=== PATIENT | female | born 1985 | race African-American/Black ===

== ENCOUNTER 2016-11-11 04:04 | Emergency (ER) | payer OTHER ==
[~2016-11-11] VITALS: Ht 172.7 cm; Wt 89.4 kg
[~2016-11-11 04:04] MED LIST: ADVAIR 100-501 EACH INH; ADVAIR 100/501 PUFF1 INH; ADVAIR 250-501 EACH INH; ALBUTEROL SULF8.5 GM INH; ALBUTEROL2.5 MG/3 M HHN; ALBUTEROL2.5 MG/3 M INH; AMOXICILLIN500 MG ORAL; IBUPROFEN600 MG ORAL; IPRATROPIU0.2 MG/1 M HHN; METRONIDAZOLE500 MG ORAL; NKM; PREDNISONE20 MG ORAL; PREDNISONE50 MG ORAL; PROAIR HFA8.5 GM INH; QVAR7.3 GM INH; SYMBICORT 1601 PUFFS INH; SYMBICORT 16010.2 G1 IH; SYMBICORT 80-10.2 G1 IH; VENTOLIN HFA18 GM INH
[2016-11-11] MEDS ORDERED: PredniSONE 20mg tab ORAL ONE (04:30)
[2016-11-11] MEDS: Ipratropium 0.02% Inh Soln 2.5ml UD HHN SCH ×2 (04:47→05:00)
[2016-11-11] MEDS: Albuterol ud Inhalation HHN SCH ×2 (04:47→05:00)
[2016-11-11] MEDS ORDERED: SYMBICORT 16010.2 G1 IH (05:29)
[2016-11-11] MEDS ORDERED: PREDNISONE20 MG ORAL (05:29)
[2016-11-11] MEDS ORDERED: ALBUTEROL SULF8.5 GM INH (05:29)
[2016-11-11 05:30] VITALS: BP 122/60
[2016-11-11 05:35] VITALS: BP 122/60
--- NOTE | 2016-11-11 05:51 | Emergency Room Report ---
History of Present Illness General Chief Complaint: Dyspnea/Respdistress Source: Patient Present Illness HPI 31-year-old female presents ED complaining of shortness of breath x2 days. States patient has history of asthma. Patient states she ran out of her inhaler and symbicort. Denies any fevers or chills. Denies cough. No other aggravating relieving factors. Denies any other associated symptoms Allergies: Coded Allergies: No Known Allergies (Unverified , 10/24/14) Patient History Past Medical History: asthma Past Surgical History: none Pertinent Family History: none Social History: Denies: alcohol use, drug use, smoking Last Menstrual Period: NOV 08 Now: No : 0 Para: 2 Immunizations: UTD Reviewed Nursing Documentation: PMH: Agreed, PSxH: Agreed Nursing Documentation-PMH Hx Cardiac Problems: No Hx Asthma: Yes Hx Cancer: No Hx Gastrointestinal Problems: No Hx Neurological Problems: No Review of Systems All Other Systems: negative except mentioned in HPI Physical Exam Vital Signs Date Time Temp Pulse Resp B/P Pulse Ox O2 Delivery O2 Flow Rate FiO2 11/11/16 04:05 97.5 71 18 125/56 98 Room Air 11/11/16 05:23 21 Sp02 EP Interpretation: reviewed, normal General Appearance: no apparent distress, alert, GCS 15, non-toxic Head: normocephalic Eyes: bilateral eye PERRL, bilateral eye normal inspection ENT: normal ENT inspection Neck: normal inspection Respiratory: wheezing Cardiovascular #1: regular rate, rhythm, no edema Gastrointestinal: normal bowel sounds, non tender, soft, non-distended, no guarding, no rebound Rectal: deferred Genitourinary: no CVA tenderness Musculoskeletal: normal inspection Neurologic: alert, oriented x3, responsive, motor strength/tone normal, sensory intact, speech normal Psychiatric: normal inspection Skin: normal inspection Lymphatic: normal inspection Medical Decision Making Diagnostic Impression: Primary Impression: Asthma exacerbation ER Course Hospital Course 31-year-old female presents to ED complaining of SOB, wheezing Differential diagnoses include: URI, bronchitis, asthma/COPD, pneumonia Clinical course Patient placed on stretcher. After initial history, physical exam reveals a female in no acute distress. Bilateral TM unremarkable. No pharyngeal erythema. No tonsillar exudates. No lymphadenopathy. Mild wheezing noted on exam, no signs of respiratory distress or retractions. Patient given Prednisone and albuterol/atrovent treatment in ED with symptoms improved. Reassurance given Diagnosis - asthma exacerbation Stable and discharged home with prescriptions for prednisone, albuterol inhaler , symbicort. Instructed to followup with PMD. Return to ED if symptoms recur or worsen Last Vital Signs Date Time Temp Pulse Resp B/P Pulse Ox O2 Delivery O2 Flow Rate FiO2 11/11/16 05:24 70 20 100 Room Air 21 11/11/16 04:05 97.5 125/56 Status: improved Disposition: HOME, SELF-CARE Condition: Stable Scripts Prednisone* (PREDNISONE*) 20 Mg Tablet 40 MG ORAL DAILY, #10 TAB Prov: JAGDISH MORALES M.D. 11/11/16 Budesonide/Formoterol Fumarate (SYMBICORT 160-4.5 MCG INHALER) 10.2 Gm Hfa.aer.ad 1 PUFF IH BID, #1 INH 0 Refills Prov: JAGDISH MORALES M.D. 11/11/16 Albuterol Sulfate* (ALBUTEROL SULFATE MDI*) 8.5 Gm Hfa.aer.ad 2 PUFF INH Q4H Y for cough/wheezing, #1 EA 0 Refills Prov: JAGDISH MORALES M.D. 11/11/16 Referrals: [facility]ERR[facility] (PCP) Patient Instructions: Asthma, Adult JAGDISH MORALES M.D. Nov 11, 2016 05:51
== END 2016-11-11 05:36 | disposition home or self-care (01) ==
LOC: EMR 04:20
DX: J45.901 Unspecified asthma with (acute) exacerbation (principal)
CPT/HCPCS: 94640; 99284

== ENCOUNTER 2017-01-02 01:52 | Emergency (ER) | payer OTHER ==
[~2017-01-02] VITALS: Ht 172.7 cm; Wt 81.6 kg
[2017-01-02 02:09] VITALS: BP 113/63
[2017-01-02] MEDS ORDERED: PredniSONE 20mg tab ONE (02:24)
[2017-01-02] MEDS ORDERED: PredniSONE 20mg tab ORAL ONE (02:30)
[2017-01-02] MEDS ORDERED: ADVAIR 100-501 EACH INH (02:40)
[2017-01-02] MEDS ORDERED: SYMBICORT 16010.2 G1 IH (02:40)
[2017-01-02] MEDS ORDERED: PREDNISONE20 MG ORAL (02:40)
[2017-01-02] MEDS ORDERED: ALBUTEROL SULF8.5 GM INH (02:40)
--- NOTE | 2017-01-02 02:40 | Emergency Room Report ---
History of Present Illness General Chief Complaint: Asthma Source: Patient Present Illness HPI Is a 31-year-old female with history of asthma. She has an exacerbation practically every day. She does not smoke but does repeat to do. She is out of her inhaler for last couple days. She been using her nebulizer machine all day. No fever or chills. No nausea no vomiting. Similar to previous exacerbation. Never been intubated before. Last steroid use was several months ago. Allergies: Coded Allergies: No Known Allergies (Unverified , 10/24/14) Patient History Past Medical History: see triage record, old chart reviewed, asthma Past Surgical History: none Pertinent Family History: none Social History: Denies: smoking Last Menstrual Period: 12/11/16 Now: No : 0 Para: 0 Immunizations: other Reviewed Nursing Documentation: PMH: Agreed, PSxH: Agreed Nursing Documentation-PMH Hx Cardiac Problems: No Hx Asthma: Yes Hx Cancer: No Hx Gastrointestinal Problems: No Hx Neurological Problems: No Review of Systems Eye: Denies: blurred vision, eye pain ENT: Denies: ear pain, nose congestion, throat swelling Respiratory: Reports: shortness of breath, wheezing, Denies: cough Cardiovascular: Denies: chest pain, palpitations Gastrointestinal: Denies: abdominal pain, diarrhea, nausea, vomiting Musculoskeletal: Denies: back pain, joint pain Skin: Denies: rash Neurological: Denies: headache, numbness Endocrine: Denies: increased thirst, increased urine Hematologic/Lymphatic: Denies: easy bruising All Other Systems: negative except mentioned in HPI Physical Exam Vital Signs Date Time Temp Pulse Resp B/P Pulse Ox O2 Delivery O2 Flow Rate FiO2 01/02/17 01:57 98.1 73 16 113/63 97 Room Air vitals normal Sp02 EP Interpretation: reviewed, normal General Appearance: well appearing, no apparent distress, alert Head: normocephalic, atraumatic Eyes: bilateral eye EOMI, bilateral eye PERRL ENT: hearing grossly normal, normal pharynx Neck: full range of motion, supple, no meningismus Respiratory: chest non-tender, lungs clear, normal breath sounds Cardiovascular #1: regular rate, rhythm, no murmur Gastrointestinal: normal bowel sounds, non tender, no mass, no organomegaly, no bruit, non-distended Musculoskeletal: back normal, gait/station normal, normal range of motion Psychiatric: mood/affect normal Skin: warm/dry Medical Decision Making Diagnostic Impression: Primary Impression: Asthma exacerbation ER Course Patient with asthma exacerbation. Lungs are clear here. Will put on steroid. She said Advair helped in the past. No evidence of respiratory distress or pneumonia. Last Vital Signs Date Time Temp Pulse Resp B/P Pulse Ox O2 Delivery O2 Flow Rate FiO2 01/02/17 02:10 73 16 Room Air 01/02/17 02:09 98.1 113/63 97 Status: improved Disposition: HOME, SELF-CARE Condition: Stable Scripts Fluticasone/Salmeterol (Advair 100-50 Diskus) 1 Each Blst.w.dev 1 PUFF INH TWICE A DAY, #1 EA Prov: NAMRATA EARLY M.D. 01/02/17 Budesonide/Formoterol Fumarate (SYMBICORT 160-4.5 MCG INHALER) 10.2 Gm Hfa.aer.ad 1 PUFF IH BID, #1 INH 0 Refills Prov: NAMRATA EARLY M.D. 01/02/17 Prednisone* (PREDNISONE*) 20 Mg Tablet 60 MG ORAL DAILY, #12 TAB Prov: NAMRATA EARLY M.D. 01/02/17 Albuterol Sulfate* (ALBUTEROL SULFATE MDI*) 8.5 Gm Hfa.aer.ad 2 PUFF INH Q4H Y for cough/wheezing, #1 EA 0 Refills Prov: NAMRATA EARLY M.D. 01/02/17 Patient Instructions: Asthma, Adult Additional Instructions: Followup with your DrNelida in 7 days. Return if symptom worsen. NAMRATA EARLY M.D. Jan 02, 2017 02:40
== END 2017-01-02 02:45 | disposition home or self-care (01) ==
LOC: EMR 02:12
DX: J45.901 Unspecified asthma with (acute) exacerbation (principal)
CPT/HCPCS: 99284

== ENCOUNTER 2017-02-16 05:53 | Emergency (ER) | payer OTHER ==
[~2017-02-16] VITALS: Ht 172.7 cm; Wt 83.9 kg
[2017-02-16 06:10] VITALS: BP 118/76
[2017-02-16] MEDS ORDERED: Albuterol ud Inhalation HHN ONE (06:15)
[2017-02-16] MEDS ORDERED: PredniSONE 20mg tab ORAL ONE (06:15)
[2017-02-16] MEDS ORDERED: Ipratropium 0.02% Inh Soln 2.5ml UD HHN ONE (06:15)
[2017-02-16] MEDS ORDERED: DULERA 200 MCG/13 GM IH (06:18)
[2017-02-16] MEDS ORDERED: VENTOLIN HFA18 GM INH (06:18)
[2017-02-16 06:20] VITALS: BP 118/76
--- NOTE | 2017-02-17 08:59 | Emergency Room Report ---
History of Present Illness General Chief Complaint: Asthma Source: Patient Present Illness HPI 32-year-old female presents ED for evaluation. Patient states she is here to get her refill of her asthma medications. Takes albuterol and Dulera. Patient states she's been using her inhaler this week because she has a runny nose and cough. Cough is mostly dry with some intermittent sputum. Denies any fevers or chills. Denies chest pain shortness of breath. Denies any wheezing at this time. No other aggravating relieving factors. Denies any other associated symptoms Allergies: Coded Allergies: No Known Allergies (Unverified , 10/24/14) Patient History Past Medical History: asthma Past Surgical History: none Pertinent Family History: none Social History: Denies: alcohol use, drug use, smoking Now: No Immunizations: UTD Reviewed Nursing Documentation: PMH: Agreed, PSxH: Agreed Nursing Documentation-PMH Hx Cardiac Problems: No Hx Asthma: Yes Hx Cancer: No Hx Gastrointestinal Problems: No Hx Neurological Problems: No Review of Systems All Other Systems: negative except mentioned in HPI Physical Exam Vital Signs Date Time Temp Pulse Resp B/P Pulse Ox O2 Delivery O2 Flow Rate FiO2 02/16/17 05:57 97.7 67 18 120/75 98 Room Air Sp02 EP Interpretation: reviewed, normal General Appearance: no apparent distress, alert, GCS 15, non-toxic Head: normocephalic, atraumatic Eyes: bilateral eye PERRL, bilateral eye normal inspection ENT: hearing grossly normal, normal pharynx, no angioedema, normal voice Neck: full range of motion, supple/symm/no masses Respiratory: chest non-tender, lungs clear, normal breath sounds, speaking full sentences Cardiovascular #1: regular rate, rhythm, no edema Cardiovascular #2: 2+ carotid (R), 2+ carotid (L), 2+ radial (R), 2+ radial (L) , 2+ dorsalis pedis (R), 2+ dorsalis pedis (L) Gastrointestinal: normal bowel sounds, non tender, soft, non-distended, no guarding, no rebound Rectal: deferred Genitourinary: normal inspection, no CVA tenderness Musculoskeletal: back normal, gait/station normal, normal range of motion, non- tender Neurologic: alert, oriented x3, responsive, motor strength/tone normal, sensory intact, speech normal Psychiatric: judgement/insight normal, memory normal, mood/affect normal, no suicidal/homicidal ideation Reflexes: 3+ bicep (R), 3+ bicep (L), 3+ tricep (R), 3+ tricep (L), 3+ knee (R) , 3+ knee (L) Skin: normal color, no rash, warm/dry, well hydrated Lymphatic: no adenopathy Medical Decision Making Diagnostic Impression: Primary Impression: Medication refill Additional Impression: Asthma Qualified Codes: J45.909 - Unspecified asthma, uncomplicated ER Course 32-year-old female presents to ED refill of her medication. History of asthma hospital course: After initial history is exam reveals a young female in no acute distress. Lungs clear. Vital stable. O2 saturations 100%. Patient appears comfortable. Patient is not want any breathing treatment at this time. Only wants refills of her medication Diagnosis-encounter for medication refill, asthma Stable and discharged to home with prescription for albuterol, dulera. Followup with PMD. Return to ED if symptoms recur or worsen Last Vital Signs Date Time Temp Pulse Resp B/P Pulse Ox O2 Delivery O2 Flow Rate FiO2 02/16/17 06:20 97.7 77 17 118/76 99 Room Air Status: improved Disposition: HOME, SELF-CARE Condition: Stable Scripts Mometasone/Formoterol (DULERA 200 MCG/5 MCG INHALER) 13 Gm Hfa.aer.ad 13 GM IH BID, #1 UNIT Prov: JAGDISH MORALES M.D. 02/16/17 Albuterol Sulfate (VENTOLIN HFA) 18 Gm Hfa.aer.ad 2 PUFFS INH EVERY 6 HOURS, #18 GM 0 Refills Prov: JAGDISH MORALES M.D. 02/16/17 Referrals: [facility]OS[facility]/,REFERRING Patient Instructions: Asthma, Adult JAGDISH MORALES M.D. February 17, 2017 08:59
== END 2017-02-16 06:20 | disposition home or self-care (01) ==
LOC: EMR 06:20
DX: Z76.0 Encounter for issue of repeat prescription (principal); J45.909 Unspecified asthma, uncomplicated
CPT/HCPCS: 99284

== ENCOUNTER 2017-08-31 05:20 | Emergency (ER) | payer SELFPAY ==
[~2017-08-31] VITALS: Ht 172.7 cm; Wt 81.6 kg
[~2017-08-31 05:20] MED LIST changes: +DULERA 200 MCG/13 GM IH
[2017-08-31 05:29] VITALS: BP 120/78
[2017-08-31] MEDS ORDERED: ALBUTEROL SULF8.5 GM INH (05:39)
[2017-08-31] MEDS ORDERED: PREDNISONE20 MG ORAL (05:39)
--- NOTE | 2017-08-31 05:44 | Emergency Room Report ---
History of Present Illness General Chief Complaint: Asthma Source: Patient Present Illness HPI Patient presents with complaints of flareup of her asthma She reports that she is running out of her albuterol inhaler Denies any fevers or chills She has a mild cough Denies any vomiting or diarrhea denies any recent travel Denies any rash Patient reports being on a steroid inhaler However is unsure this is helping Allergies: Coded Allergies: No Known Allergies (Unverified , 10/24/14) Patient History Past Medical History: see triage record Pertinent Family History: none Last Menstrual Period: Jul Reviewed Nursing Documentation: PMH: Agreed, PSxH: Agreed Nursing Documentation-PMH Hx Cardiac Problems: No Hx Asthma: Yes Hx Cancer: No Hx Gastrointestinal Problems: No Hx Neurological Problems: No Review of Systems All Other Systems: negative except mentioned in HPI Physical Exam Vital Signs Date Time Temp Pulse Resp B/P (MAP) Pulse Ox O2 Delivery O2 Flow Rate FiO2 08/31/17 05:23 97.7 58 18 120/78 97 Room Air Sp02 EP Interpretation: reviewed, normal General Appearance: well appearing, no apparent distress Head: normocephalic, atraumatic Eyes: bilateral eye PERRL, bilateral eye EOMI ENT: hearing grossly normal, normal pharynx, TMs + canals normal, uvula midline Neck: full range of motion, supple, no meningismus, no bony tend Respiratory: no rhonchi, no respiratory distress, no retraction, no accessory muscle use, wheezing - bilaterally Cardiovascular #1: normal peripheral pulses, regular rate, rhythm, no edema, no gallop, no JVD, no murmur Gastrointestinal: normal bowel sounds, non tender, soft, no mass, no organomegaly, non-distended, no guarding, no hernia, no pulsatile mass, no rebound Genitourinary: no CVA tenderness Musculoskeletal: normal inspection Neurologic: oriented x3, responsive, principal clerk typist III-XII nml as tested, motor strength/ tone normal, sensory intact Psychiatric: mood/affect normal Skin: normal color, no rash, warm/dry, palpation normal Lymphatic: normal inspection, no adenopathy Medical Decision Making Diagnostic Impression: Primary Impression: Asthma exacerbation ER Course Multiple differentials considered Patient does show evidence of wheezing bilaterally No signs of retraction saturating well patient has had several visits with similar complaints History imaging was not obtained Patient was given breathing treatment has done better And will be placed on oral steroids for a few days Last Vital Signs Date Time Temp Pulse Resp B/P (MAP) Pulse Ox O2 Delivery O2 Flow Rate FiO2 08/31/17 05:29 97.7 76 18 120/78 98 Room Air Status: improved Disposition: HOME, SELF-CARE Condition: Improved Scripts Prednisone* (PREDNISONE*) 20 Mg Tablet 20 MG ORAL BID, #10 TAB Prov: PARADISE CALL D.O. 08/31/17 Albuterol Sulfate* (ALBUTEROL SULFATE MDI*) 8.5 Gm Hfa.aer.ad 2 PUFF INH Q6H, #1 EA 0 Refills Prov: PARADISE CALL D.O. 08/31/17 Referrals: NOT [facility]OSEN [facility],REFERRING (PCP) Patient Instructions: Asthma, Adult Additional Instructions: Patient is provided with the discharge instructions notified to follow up with primary doctor in the next 2-3 days otherwise return to the er with any worsening symptoms. Please note that this report is being documented using [employer] technology. This can lead to erroneous entry secondary to incorrect interpretation by the dictating instrument. PARADISE CALL D.O. Aug 31, 2017 05:44
[2017-08-31] MEDS ORDERED: Albuterol ud Inhalation HHN ONE (05:45)
[2017-08-31] MEDS ORDERED: Ipratropium 0.02% Inh Soln 2.5ml UD HHN ONE (05:45)
[2017-08-31 06:07] VITALS: BP 118/70
== END 2017-08-31 06:07 | disposition home or self-care (01) ==
LOC: EMR 05:41
DX: J45.901 Unspecified asthma with (acute) exacerbation (principal)
CPT/HCPCS: 94640; 94664; 99284

== ENCOUNTER 2017-09-21 04:00 | Emergency (ER) | payer MEDICAID ==
[~2017-09-21] VITALS: Ht 172.7 cm; Wt 81.6 kg
[2017-09-21] MEDS ORDERED: Solu-MEDROL 125mg Inj IVP ONE (04:15)
[2017-09-21] MEDS ORDERED: EPINEPHrine 1mg/1ml Amp IM ONE (04:15)
[2017-09-21] MEDS ORDERED: Ipratropium 0.02% Inh Soln 2.5ml UD HHN ONE (04:15)
--- NOTE | 2017-09-21 04:20 | Emergency Room Report ---
History of Present Illness General Chief Complaint: Asthma Source: Patient Present Illness HPI The patient presents with dyspnea. She's been ill for at least 2 days. She's been using her inhalers and a nebulizer at least every couple of hours. They' re not helping at this time. She's been intubated in the past and had a chest tube in the past also. Is not her worse attack. It is severe. She's not taking prednisone at this time and was last on it 3 weeks ago. She denies any hemoptysis or productive cough. She says is very difficult to cough because she can't get enough air the before stop. Denies nausea vomiting or diarrhea. Her last period was tenth. Last admitted . No rashes, headache, vomiting, dysuria. She doesn't believe she is . 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 Allergies: Coded Allergies: No Known Allergies (Unverified , 10/24/14) Patient History Past Medical History: see triage record Social History: Denies: smoking Social History Narrative Last Menstrual Period: 09/05/17 Now: No : 1 Para: 0 Reviewed Nursing Documentation: PMH: Agreed, PSxH: Agreed Nursing Documentation-PMH Hx Cardiac Problems: No Hx Asthma: Yes Hx Cancer: No Hx Gastrointestinal Problems: No Hx Neurological Problems: No Review of Systems All Other Systems: negative except mentioned in HPI Physical Exam Vital Signs Date Time Temp Pulse Resp B/P (MAP) Pulse Ox O2 Delivery O2 Flow Rate FiO2 09/21/17 04:04 98.1 68 14 136/87 99 Room Air Sp02 EP Interpretation: reviewed, normal General Appearance: well appearing, GCS 15, mild distress Head: normocephalic Eyes: bilateral eye normal inspection, bilateral eye PERRL ENT: moist mucus membranes Neck: supple Respiratory: accessory muscle use, wheezing - heard from bedside, expiration, inspiration - tight Cardiovascular #1: regular rate, rhythm Cardiovascular #2: 2+ radial (R) Gastrointestinal: normal inspection, normal bowel sounds, non tender, no mass, non-distended Musculoskeletal: back normal, gait/station normal, normal range of motion, no calf tenderness Neurologic: alert, oriented x3, grossly normal Psychiatric: mood/affect normal Skin: normal inspection, warm/dry Medical Decision Making Diagnostic Impression: Primary Impression: Status asthmaticus Qualified Codes: J45.52 - Severe persistent asthma with status asthmaticus ER Course Patient with bronchospasm, h/o ashma stating inhalers and nebulizer not working. Ddx: pneumonia, status asthmaticus, asthma exacerbation, bronchitis amongst others. Doubt PE. Sounds infectious. Patient with severe bronchospasm. Needs evaluation with labs, cxr and ekg. Aggressive treatment with breathing treatments, IM epi, steroids, magnesium. Consideration for hospitalization if not dramatically improved. CXR no infiltrates. EKG no injury. Labs with low mag. Normal WBC. No eosinophils. Patient improved but still with insp and exp wheezes. Continued breathing treatments. Hospital bed requested. Patient better. Insists on leaving. Long discussion regarding severity of asthma. She states she "feels great". Clear at start of exercise - then at end = exp wheezing. Discharged patient with reluctance. Laboratory Tests Test 09/21/17 04:30 White Blood Count 3.4 K/UL (4.8-10.8) L Red Blood Count 4.85 M/UL (4.20-5.40) Hemoglobin 12.6 G/DL (12.0-16.0) Hematocrit 41.0 % (37.0-47.0) Mean Corpuscular Volume 84 FL (80-99) Mean Corpuscular Hemoglobin 26.0 PG (27.0-31.0) L Mean Corpuscular Hemoglobin Concent 30.8 G/DL (32.0-36.0) L Red Cell Distribution Width 12.4 % (11.6-14.8) Platelet Count 225 K/UL (150-450) Mean Platelet Volume 6.9 FL (6.5-10.1) Neutrophils (%) (Auto) % (45.0-75.0) Lymphocytes (%) (Auto) % (20.0-45.0) Monocytes (%) (Auto) % (1.0-10.0) Eosinophils (%) (Auto) % (0.0-3.0) Basophils (%) (Auto) % (0.0-2.0) Neutrophils % (Manual) Pending Lymphocytes % (Manual) Pending Platelet Estimate Pending Platelet Morphology Pending Prothrombin Time 10.7 SEC (9.30-11.50) Prothrombin Time INR 1.0 (0.9-1.1) PTT 28 SEC (23-33) Sodium Level 139 MMOL/L (136-145) Potassium Level 4.1 MMOL/L (3.5-5.1) Chloride Level 104 MMOL/L (98-107) Carbon Dioxide Level 26 MMOL/L (21-32) Anion Gap 9 mmol/L (5-15) Blood Urea Nitrogen 19 mg/dL (7-18) H Creatinine 1.1 MG/DL (0.55-1.30) Estimate Glomerular Filtration Rate > 60 mL/min (>60) Glucose Level 95 MG/DL (74-106) Calcium Level 7.6 MG/DL (8.5-10.1) L Magnesium Level 1.7 MG/DL (1.8-2.4) L Total Bilirubin 0.9 MG/DL (0.2-1.0) Aspartate Amino Transferase (AST) 17 U/L (15-37) Alanine Aminotransferase (ALT) 27 U/L (12-78) Alkaline Phosphatase 51 U/L (46-116) Total Creatine Kinase 116 U/L (26-308) Troponin I 0.000 ng/mL (0.000-0.056) Pro-B-Type Natriuretic Peptide 7 pg/mL (0-125) Total Protein 6.8 G/DL (6.4-8.2) Albumin 3.7 G/DL (3.4-5.0) Globulin 3.1 g/dL Albumin/Globulin Ratio 1.2 (1.0-2.7) EKG Diagnostic Results Rate: normal Rhythm: NSR ST Segments: no acute changes Rhythm Strip Diag. Results Rhythm: NSR, no PVC's, no ectopy Last Vital Signs Date Time Temp Pulse Resp B/P (MAP) Pulse Ox O2 Delivery O2 Flow Rate FiO2 09/21/17 06:44 98.2 80 16 125/95 97 Room Air 21 Status: improved Disposition: HOME, SELF-CARE Condition: Improved Scripts Multivitamin With Minerals (MULTIVITAMINS WITH MINERALS*) 1 Each Tablet 1 TAB ORAL DAILY, #30 TAB Prov: Juwan Nathan M.D. 09/21/17 Albuterol Sulfate* (ALBUTEROL SULFATE MDI*) 8.5 Gm Hfa.aer.ad 2 PUFF INH Q4H Y for cough/wheezing, #1 EA 1 Refill Prov: Juwan Nathan M.D. 09/21/17 Albuterol Sulfate* (ALBUTEROL SULFATE HHN*) 2.5 Mg/3 Ml Vial.neb 3 ML INH Q6H Y for Shortness of Breath, #30 EA 1 Refill Prov: Juwan Nathan M.D. 09/21/17 Beclomethasone Dipropionate 40MCG Oral Inh (QVAR 40*) 7.3 Gm Aer.w.adap 2 PUFFS INH TWICE A DAY, #1 GM 1 Refill Prov: Juwan Nathan M.D. 09/21/17 Prednisone* (PREDNISONE*) 20 Mg Tablet 40 MG ORAL DAILY, #10 TAB Prov: Juwan Nathan M.D. 09/21/17 Juwan Nathan M.D. Sep 21, 2017 04:20
[2017-09-21 04:22] VITALS: BP 125/95
[2017-09-21] MEDS: Albuterol ud Inhalation HHN SCH ×3 (04:31→04:50)
[2017-09-21 05:03] LABS: MEAN CORPUSCULAR HGB CONC 30.8 G/DL (32.0-36.0); MEAN CORPUSCULAR VOLUME 84 FL (80-99); MEAN PLATELET VOLUME 6.9 FL (6.5-10.1); PLATELET COUNT 225 K/UL (150-450); RED BLOOD COUNT 4.85 M/UL (4.20-5.40); RED CELL DISTRIBUTION WIDTH 12.4 % (11.6-14.8); WHITE BLOOD COUNT 3.4 K/UL (4.8-10.8)
[2017-09-21 05:04] LABS: PROTHROMBIN TIME 10.7 SEC (9.30-11.50)
[2017-09-21 05:05] LABS: ANION GAP 9 mmol/L (5-15); CALCIUM 7.6 MG/DL (8.5-10.1); CARBON DIOXIDE 26 MMOL/L (21-32); CHLORIDE 104 MMOL/L (98-107); CREATININE 1.1 MG/DL (0.55-1.30); GLOMERULAR FILTRATION RATE > 60 mL/min (>60); POTASSIUM 4.1 MMOL/L (3.5-5.1); SODIUM 139 MMOL/L (136-145)
[2017-09-21 05:16] LABS: ALANINE AMINOTRANSFERASE 27 U/L (12-78); ALBUMIN/GLOBULIN RATIO 1.2 (1.0-2.7); ASPARTATE AMINO TRANSFERASE 17 U/L (15-37); MAGNESIUM 1.7 MG/DL (1.8-2.4); TOTAL PROTEIN 6.8 G/DL (6.4-8.2)
[2017-09-21] MEDS ORDERED: Albuterol ud Inhalation HHN ONE (06:15)
[2017-09-21] MEDS ORDERED: ALBUTEROL2.5 MG/3 M INH (06:39)
[2017-09-21] MEDS ORDERED: PREDNISONE20 MG ORAL (06:39)
[2017-09-21] MEDS ORDERED: ALBUTEROL SULF8.5 GM INH (06:39)
[2017-09-21] MEDS ORDERED: QVAR7.3 GM INH (06:39)
[2017-09-21] MEDS ORDERED: MULTIVITAMINS1 EAC8 ORAL (06:40)
[2017-09-21 06:44] VITALS: BP 125/95
[2017-09-21 07:53] LABS: BAND NEUTROPHILS % (MANUAL) 0 % (0-8); BASOPHILS % (MANUAL) 0 % (0-2); EOSINOPHILS % (MANUAL) 9 % (0-3); LYMPHOCYTES % (MANUAL) 44 % (20-45); NEUTROPHILS % (MANUAL) 37 % (45-75); PLATELET ESTIMATE ADEQUATE; PLATELET MORPHOLOGY NORMAL; TOTAL CELLS COUNTED 100
--- NOTE | 2017-09-21 12:12 | Diagnostic Imaging Report ---
Indication: Dyspnea Comparison: 10/24/2014 A single view chest radiograph was obtained. Findings: Cardiomediastinal appearance is within normal limits for age. Pulmonary vascularity is appropriate. The diaphragmatic contour is smooth and costophrenic angles are sharp. No pleural effusions are identified. The bones are unremarkable. Impression: No acute findings
--- NOTE | 2017-10-05 00:22 | Cardiology Report ---
APPROVED REPORT EKG Measurement Heart [id number] Normal sinus rhythm Normal ECG
== END 2017-09-21 06:48 | disposition home or self-care (01) ==
LOC: EMR 04:10 → CANBEDREQ 06:36 → EMR 06:48
DX: J45.902 Unspecified asthma with status asthmaticus (principal)
CPT/HCPCS: 36415; 71010; 80053; 82550; 83735; 83880; 84484; 85007; 85025; 85610; 85730; 93005; 94640; 94664; 96361; 96372; 96374; 96375; 99284; J0171; J2930

== ENCOUNTER 2017-11-08 02:47 | Emergency (ER) | payer SELFPAY ==
[~2017-11-08] VITALS: Ht 172.7 cm; Wt 79.8 kg
[~2017-11-08 02:47] MED LIST changes: +MULTIVITAMINS1 EAC8 ORAL
[2017-11-08 03:03] VITALS: BP 114/53
[2017-11-08] MEDS ORDERED: cefTRIAXone 1 GM in NS 55 ML IV STA (03:11)
[2017-11-08] MEDS ORDERED: Ipratropium 0.02% Inh Soln 2.5ml UD HHN ONE (03:15)
[2017-11-08] MEDS ORDERED: Solu-MEDROL 125mg Inj IVP ONE (03:15)
--- NOTE | 2017-11-08 03:22 | Emergency Room Report ---
History of Present Illness General Chief Complaint: Asthma Source: Patient Present Illness HPI Patient has had worsened asthma for several weeks. She's had cough and wheezing. She's been using her nebulizer. She ran out of her steroid inhalers several weeks ago. Today coughing up yellow phlegm. She feels feverish. She denies any vomiting or diarrhea. There's no dysuria. Last period was normal for her recently. There is no rash. She's also had some pressure and discomfort in her R ear. Does not rate pain (0/10). The patient was seen here in August and had status asthmaticus. She got better but signed out AGAINST MEDICAL ADVICE to travel to [place] her niece and nephew. No NVD, rashes, headache, anxiety, dysuria, vag d/c, joint pain, chest pain, palpitations. Allergies: Coded Allergies: No Known Allergies (Unverified , 10/24/14) Patient History Past Medical History: see triage record Social History: Denies: smoking Social History Narrative Last Menstrual Period: 10/15/17 Now: No : 1 Para: 0 Reviewed Nursing Documentation: PMH: Agreed, PSxH: Agreed Nursing Documentation-PMH Past Medical History: No History, Except For Hx Cardiac Problems: No Hx Asthma: Yes Hx Cancer: No Hx Gastrointestinal Problems: No Hx Neurological Problems: No Review of Systems All Other Systems: negative except mentioned in HPI Physical Exam Vital Signs Date Time Temp Pulse Resp B/P (MAP) Pulse Ox O2 Delivery O2 Flow Rate FiO2 11/08/17 02:50 98.1 75 15 121/83 95 Room Air 11/08/17 03:03 100 Sp02 EP Interpretation: reviewed, normal General Appearance: well appearing, no apparent distress, GCS 15 Head: normocephalic Eyes: bilateral eye normal inspection, bilateral eye PERRL ENT: moist mucus membranes, other - R TM with some erythema Neck: supple Respiratory: wheezing, expiration, inspiration Cardiovascular #1: regular rate, rhythm, no edema Cardiovascular #2: 2+ radial (R) Gastrointestinal: normal inspection, normal bowel sounds, non tender, no mass, non-distended Musculoskeletal: back normal, gait/station normal, normal range of motion, no calf tenderness Neurologic: alert, oriented x3, grossly normal Psychiatric: mood/affect normal Skin: normal inspection, warm/dry Medical Decision Making Diagnostic Impression: Primary Impression: Asthma exacerbation Qualified Codes: J45.51 - Severe persistent asthma with (acute) exacerbation Additional Impression: Otitis media Qualified Codes: H66.004 - Acute suppurative otitis media without spontaneous rupture of ear drum, recurrent, right ear ER Course Patient presents with asthma and a productive cough. She also complains about pain in her right ear. Differential includes asthma exacerbation, otitis media , pneumonia or bronchospasm amongst others. The patient be treated with Solu- Medrol and breathing treatments. Evaluation be with EKG, cardiac monitoring, chest x-ray and labs. EKG no injury. CXR no infiltrates. Labs with low WBC, rest unremarkable. In the past she has had eosinophilia. Still with wheezing but ambulatory without dyspnea. Repeat breathing treatment. Antibiotics for OM. Patient still with some wheezing, states wheezes all the time. Feels well enough to be home. Patient stable for outpatient observation and treatment. Laboratory Tests Test 11/08/17 03:25 11/08/17 05:20 White Blood Count 3.3 K/UL (4.8-10.8) L Red Blood Count 5.16 M/UL (4.20-5.40) Hemoglobin 13.6 G/DL (12.0-16.0) Hematocrit 42.5 % (37.0-47.0) Mean Corpuscular Volume 82 FL (80-99) Mean Corpuscular Hemoglobin 26.4 PG (27.0-31.0) L Mean Corpuscular Hemoglobin Concent 32.0 G/DL (32.0-36.0) Red Cell Distribution Width 11.6 % (11.6-14.8) Platelet Count 232 K/UL (150-450) Mean Platelet Volume 6.7 FL (6.5-10.1) Neutrophils (%) (Auto) % (45.0-75.0) Lymphocytes (%) (Auto) % (20.0-45.0) Monocytes (%) (Auto) % (1.0-10.0) Eosinophils (%) (Auto) % (0.0-3.0) Basophils (%) (Auto) % (0.0-2.0) Prothrombin Time 10.7 SEC (9.30-11.50) Prothrombin Time INR 1.0 (0.9-1.1) PTT 31 SEC (23-33) Sodium Level 138 MMOL/L (136-145) Potassium Level 4.0 MMOL/L (3.5-5.1) Chloride Level 102 MMOL/L (98-107) Carbon Dioxide Level 29 MMOL/L (21-32) Anion Gap 7 mmol/L (5-15) Blood Urea Nitrogen 21 mg/dL (7-18) H Creatinine 1.3 MG/DL (0.55-1.30) Estimate Glomerular Filtration Rate 56.8 mL/min (>60) Glucose Level 77 MG/DL (74-106) Lactic Acid Level 1.30 mmol/L (0.66-2.22) Calcium Level 9.0 MG/DL (8.5-10.1) Magnesium Level 1.9 MG/DL (1.8-2.4) Total Bilirubin 0.6 MG/DL (0.2-1.0) Aspartate Amino Transferase (AST) 17 U/L (15-37) Alanine Aminotransferase (ALT) 22 U/L (12-78) Alkaline Phosphatase 61 U/L (46-116) Total Creatine Kinase 166 U/L (26-308) Pro-B-Type Natriuretic Peptide 12 pg/mL (0-125) Total Protein 7.1 G/DL (6.4-8.2) Albumin 4.1 G/DL (3.4-5.0) Globulin 3.0 g/dL Albumin/Globulin Ratio 1.4 (1.0-2.7) Urine Color Pale yellow Urine Appearance Clear Urine pH 7 (4.5-8.0) Urine Specific [place] 1.010 (1.005-1.035) Urine Protein Negative (NEGATIVE) Urine Glucose (UA) Negative (NEGATIVE) Urine Ketones Negative (NEGATIVE) Urine Occult Blood Negative (NEGATIVE) Urine Nitrite Negative (NEGATIVE) Urine Bilirubin Negative (NEGATIVE) Urine Urobilinogen Normal MG/DL (0.0-1.0) Urine Leukocyte Esterase Negative (NEGATIVE) Microbiology Date/Time Source Procedure Growth Status 11/08/17 05:20 Nasal Nares Influenza Types A,B Antigen (LOS) - Final Complete EKG Diagnostic Results Rate: normal Rhythm: NSR ST Segments: no acute changes Rhythm Strip Diag. Results EP Interpretation: yes Rhythm: NSR, no PVC's, no ectopy Chest X-Ray Diagnostic Results Chest X-Ray Diagnostic Results : Chest X-Ray Ordered: Yes # of Views/Limited/Complete: 1 View Indication: Shortness of Breath EP Interpretation: Yes Interpretation: no consolidation, no effusion, no pneumothorax Impression: Other Electronically Signed by: Juwan Nathan MD Last Vital Signs Date Time Temp Pulse Resp B/P (MAP) Pulse Ox O2 Delivery O2 Flow Rate FiO2 11/08/17 06:25 98.2 94 24 139/78 99 Room Air 21 Status: improved Disposition: HOME, SELF-CARE Condition: Improved Scripts Levofloxacin* (LEVAQUIN*) 500 Mg Tablet 500 MG ORAL DAILY, #7 TAB Prov: Juwan Nathan M.D. 11/08/17 Beclomethasone Dipropionate 40MCG Oral Inh (QVAR 40*) 7.3 Gm Aer.w.adap 2 PUFFS INH TWICE A DAY, #1 GM 0 Refills Prov: Juwan Nathan M.D. 11/08/17 Albuterol Sulfate* (ALBUTEROL SULFATE MDI*) 8.5 Gm Hfa.aer.ad 2 PUFF INH Q6H, #1 EA 1 Refill Prov: Juwan Nathan M.D. 11/08/17 Prednisone* (PREDNISONE*) 20 Mg Tablet 40 MG ORAL DAILY, #10 TAB Prov: Juwan Nathan M.D. 11/08/17 Juwan Nathan M.D. Nov 08, 2017 03:22
[2017-11-08 03:30] LABS: HEMATOCRIT 42.5 % (37.0-47.0); HEMOGLOBIN 13.6 G/DL (12.0-16.0); MEAN CORPUSCULAR VOLUME 82 FL (80-99); PLATELET COUNT 232 K/UL (150-450); RED BLOOD COUNT 5.16 M/UL (4.20-5.40); RED CELL DISTRIBUTION WIDTH 11.6 % (11.6-14.8); WHITE BLOOD COUNT 3.3 K/UL (4.8-10.8)
[2017-11-08] MEDS: Albuterol ud Inhalation HHN SCH ×2 (03:33→03:34)
[2017-11-08 03:50] LABS: ANION GAP 7 mmol/L (5-15); BLOOD UREA NITROGEN 21 mg/dL (7-18); CARBON DIOXIDE 29 MMOL/L (21-32); CHLORIDE 102 MMOL/L (98-107); CREATININE 1.3 MG/DL (0.55-1.30); SODIUM 138 MMOL/L (136-145)
[2017-11-08 04:01] LABS: ALANINE AMINOTRANSFERASE 22 U/L (12-78); ALBUMIN 4.1 G/DL (3.4-5.0); ALBUMIN/GLOBULIN RATIO 1.4 (1.0-2.7); ALKALINE PHOSPHATASE 61 U/L (46-116); ASPARTATE AMINO TRANSFERASE 17 U/L (15-37); BILIRUBIN,TOTAL 0.6 MG/DL (0.2-1.0); CREATINE KINASE 166 U/L (26-308)
[2017-11-08] MEDS ORDERED: Albuterol ud Inhalation HHN ONE (05:15)
[2017-11-08 05:20] LABS: APPEARANCE,URINE CLEAR; BILIRUBIN, URINE NEGATIVE (NEGATIVE); COLOR,URINE PALE YELLOW; GLUCOSE, URINE (UA) NEGATIVE (NEGATIVE); KETONES,URINE NEGATIVE (NEGATIVE); LEUKOCYTE ESTERASE ,URINE NEGATIVE (NEGATIVE); NITRITE,URINE NEGATIVE (NEGATIVE); PH,URINE 7 (4.5-8.0); PROTEIN,URINE NEGATIVE (NEGATIVE); UROBILINOGEN,URINE NORMAL MG/DL (0.0-1.0)
[2017-11-08] MEDS ORDERED: LEVAQUIN500 MG ORAL (06:05)
[2017-11-08] MEDS ORDERED: QVAR7.3 GM INH (06:05)
[2017-11-08] MEDS ORDERED: ALBUTEROL SULF8.5 GM INH (06:05)
[2017-11-08] MEDS ORDERED: PREDNISONE20 MG ORAL (06:05)
[2017-11-08 06:09] VITALS: BP 139/78
[2017-11-08 06:25] VITALS: BP 139/78
--- NOTE | 2017-11-08 10:22 | Diagnostic Imaging Report ---
Indication: Cough Comparison: 09/21/2017 A single view chest radiograph was obtained. Findings: Cardiomediastinal appearance is within normal limits for age. Pulmonary vascularity is appropriate. The diaphragmatic contour is smooth and costophrenic angles are sharp. No pleural effusions are identified. The bones are unremarkable. Impression: No acute findings
--- NOTE | 2017-11-08 19:30 | Cardiology Report ---
APPROVED REPORT EKG Measurement Heart [id number] Normal sinus rhythm with sinus arrhythmia Normal ECG
== END 2017-11-08 06:25 | disposition home or self-care (01) ==
LOC: EMR 03:30
DX: J45.901 Unspecified asthma with (acute) exacerbation (principal); H66.91 Otitis media, unspecified, right ear
CPT/HCPCS: 36415; 71045; 80053; 81003; 82550; 83605; 83735; 83880; 85025; 85610; 85730; 86710; 93005; 94640; 94664; 96361; 96365; 96366; 96375; 99284; J0696; J1956; J2930

== ENCOUNTER 2018-01-02 22:57 | Emergency (ER) | payer SELFPAY ==
[~2018-01-02] VITALS: Ht 172.7 cm; Wt 77.1 kg
[~2018-01-02 22:57] MED LIST changes: +LEVAQUIN500 MG ORAL
[2018-01-02 23:15] VITALS: BP 132/65
[2018-01-02] MEDS ORDERED: Ipratropium 0.02% Inh Soln 2.5ml UD HHN ONE (23:15)
[2018-01-02] MEDS ORDERED: Albuterol ud Inhalation HHN ONE (23:15)
[2018-01-02] MEDS ORDERED: ALBUTEROL SULF8.5 GM INH (23:48)
[2018-01-02] MEDS ORDERED: PREDNISONE20 MG ORAL (23:48)
[2018-01-02] MEDS ORDERED: QVAR7.3 G2 IH (23:48)
[2018-01-02] MEDS ORDERED: ALBUTEROL2.5 MG/3 M HHN (23:48)
--- NOTE | 2018-01-02 23:48 | Emergency Room Report ---
History of Present Illness General Chief Complaint: Upper Respiratory Illness Source: Patient Present Illness [facility] This is a 32-year-old female with history of asthma. She presents with chief point of wheezing and short of breath. Onset for last 2 days. She ran out of her medication. No nausea no vomiting. No fever or chills. Worse with exertion. Better with rest and her medication. She just ran out today. Allergies: Coded Allergies: No Known Allergies (Unverified , 10/24/14) Patient History Past Medical History: see triage record, old chart reviewed, asthma Past Surgical History: none Pertinent Family History: none Social History: Denies: smoking Last Menstrual Period: 12/07/17 Now: No Immunizations: other Reviewed Nursing Documentation: PMH: Agreed; PSxH: Agreed Nursing Documentation-PMH Past Medical History: No History, Except For Hx Cardiac Problems: No Hx Asthma: Yes Hx Cancer: No Hx Gastrointestinal Problems: No Hx Neurological Problems: No Review of Systems Eye: Denies: eye pain, blurred vision ENT: Denies: ear pain, nose congestion, throat swelling Respiratory: Reports: cough, shortness of breath, wheezing Cardiovascular: Denies: chest pain, palpitations Gastrointestinal: Denies: abdominal pain, diarrhea, nausea, vomiting Musculoskeletal: Denies: back pain, joint pain Skin: Denies: rash Neurological: Denies: headache, numbness Endocrine: Denies: increased thirst, increased urine Hematologic/Lymphatic: Denies: easy bruising All Other Systems: negative except mentioned in HPI Physical Exam Vital Signs Date Time Temp Pulse Resp B/P (MAP) Pulse Ox O2 Delivery O2 Flow Rate FiO2 01/02/18 23:03 98.7 65 16 128/65 96 Room Air 98.8 01/02/18 23:23 21 vitals normal Sp02 EP Interpretation: reviewed, normal General Appearance: well appearing, no apparent distress, alert Head: normocephalic, atraumatic Eyes: bilateral eye PERRL, bilateral eye EOMI ENT: hearing grossly normal, normal pharynx Neck: full range of motion, supple, no meningismus Respiratory: chest non-tender, decreased breath sounds, accessory muscle use, wheezing Cardiovascular #1: regular rate, rhythm, no murmur Gastrointestinal: normal bowel sounds, non tender, no mass, no organomegaly, no bruit, non-distended Musculoskeletal: back normal, gait/station normal, normal range of motion Psychiatric: mood/affect normal Skin: warm/dry Medical Decision Making Diagnostic Impression: Primary Impression: Asthma exacerbation Qualified Codes: J45.21 - Mild intermittent asthma with (acute) exacerbation ER Course Patient with asthma exacerbation. Wheezing resolved after treatment. We'll discharge home. No evidence of pneumonia, ACS, PE, dissection to name a few. Last Vital Signs Date Time Temp Pulse Resp B/P (MAP) Pulse Ox O2 Delivery O2 Flow Rate FiO2 01/02/18 23:30 66 20 100 Room Air 21 01/02/18 23:03 98.7 128/65 98.8 Status: improved Disposition: HOME, SELF-CARE Condition: Stable Scripts Beclomethasone Dipropionate (Qvar) 8.7 Gm Aer.w.adap 7.3 GM IH BID, #1 GM Prov: NAMRATA EARLY M.D. 01/02/18 Prednisone* (PREDNISONE*) 20 Mg Tablet 60 MG ORAL DAILY, #12 TAB Prov: NAMRATA EARLY M.D. 01/02/18 Albuterol Sulfate* (ALBUTEROL SULFATE HHN*) 2.5 Mg/3 Ml Vial.neb 2.5 MG HHN Q4H PRN for Shortness of Breath, #25 VIAL Prov: NAMRATA EARLY M.D. 01/02/18 Albuterol Sulfate* (ALBUTEROL SULFATE MDI*) 8.5 Gm Hfa.aer.ad 2 PUFF INH Q4H PRN for cough/wheezing, #1 EA 0 Refills Prov: NAMRATA EARLY M.D. 01/02/18 Referrals: NOT CHOSEN IPA/,REFERRING (PCP) Additional Instructions: follow-up with your DrNelida in 7 days. Return if worse. NAMRATA EARLY M.D. Jan 02, 2018 23:48
[2018-01-02 23:50] VITALS: BP 132/65
== END 2018-01-02 23:50 | disposition home or self-care (01) ==
LOC: EMR 23:18
DX: J45.901 Unspecified asthma with (acute) exacerbation (principal)
CPT/HCPCS: 94640; 99284; J7512

== ENCOUNTER 2018-02-27 11:24 | Emergency (ER) | payer MEDICAID ==
[~2018-02-27] VITALS: Ht 165.1 cm; Wt 61.2 kg
[~2018-02-27 11:24] MED LIST changes: +QVAR7.3 G2 IH
[2018-02-27] MEDS ORDERED: Albuterol/Ipratropium 3ml neb HHN ONE (12:00)
--- NOTE | 2018-02-27 12:01 | Emergency Room Report ---
History of Present Illness General Chief Complaint: Upper Respiratory Illness Source: Patient Present Illness HPI Patient is a 33-year-old female presented after increased cough and difficulty breathing. Patient had prior history of asthma. Patient reports being a smoker and had recently had increased use of vape pen. The patient denies any fever. She reports taking a steroid inhaler as well as albuterol. Patient states she has a nebulizer machine. Allergies: Coded Allergies: No Known Allergies (Unverified , 10/24/14) Patient History Past Medical History: see triage record Reviewed Nursing Documentation: PMH: Agreed; PSxH: Agreed Nursing Documentation-PMH Hx Cardiac Problems: No Hx Asthma: Yes Hx Cancer: No Hx Gastrointestinal Problems: No Hx Neurological Problems: No Review of Systems All Other Systems: negative except mentioned in HPI Physical Exam Vital Signs Date Time Temp Pulse Resp B/P (MAP) Pulse Ox O2 Delivery O2 Flow Rate FiO2 02/27/18 11:29 98.1 67 20 120/77 99 Room Air 98.1 General Appearance: well appearing, no apparent distress, alert, GCS 15, non- toxic Head: normocephalic, atraumatic ENT: hearing grossly normal, normal voice Neck: full range of motion, supple Respiratory: no respiratory distress, speaking full sentences, wheezing Cardiovascular #1: normal peripheral pulses, regular rate, rhythm Musculoskeletal: no calf tenderness Neurologic: normal gait Psychiatric: mood/affect normal Skin: no rash Medical Decision Making Diagnostic Impression: Primary Impression: Asthma exacerbation ER Course The patient presented for difficulty breathing. Differential diagnosis included but was not limited to bronchitis, pneumonia, pulmonary embolism, pericarditis, asthma, foreign body. The patient was noted to have some wheezing with expiration. Patient does not appear to have any respiratory distress. Patient was given oral prednisone as well as breathing treatment.The parents test was negative. Patient was noted to have some improvement in her symptoms this time after prednisone and breathing treatment. The patient given prescription for prednisone as well as guaifenesin and albuterol. The patient is advised follow-up with her primary care physician to return if any worsening. Last Vital Signs Date Time Temp Pulse Resp B/P (MAP) Pulse Ox O2 Delivery O2 Flow Rate FiO2 18 11:29 98.1 67 20 120/77 99 Room Air 98.1 Status: improved Disposition: HOME, SELF-CARE Scripts Albuterol Sulfate* (ALBUTEROL SULFATE MDI*) 8.5 Gm Hfa.aer.ad 2 PUFF INH Q4H PRN for cough/wheezing, #1 EA 0 Refills Prov: Fred Knight MD 02/27/18 Guaifenesin* (ADULT WAL-TUSSIN*) 100 Mg/5 Ml Liquid 10 ML ORAL Q4H, #120 ML Prov: Fred Knight MD 02/27/18 Prednisone* (PREDNISONE*) 20 Mg Tablet 60 MG ORAL DAILY, #15 TAB Prov: Fred Knight MD 02/27/18 Fred Knight MD Feb 27, 2018 12:01
[2018-02-27] MEDS ORDERED: PREDNISONE20 MG ORAL (12:24)
[2018-02-27] MEDS ORDERED: ADULT WAL-100 MG/5 M ORAL (12:24)
[2018-02-27] MEDS ORDERED: ALBUTEROL SULF8.5 GM INH (12:31)
[2018-02-27 13:23] VITALS: BP 120/77
[2018-02-27 13:24] VITALS: BP 120/77
== END 2018-02-27 13:29 | disposition home or self-care (01) ==
LOC: EMR 12:05
DX: J45.901 Unspecified asthma with (acute) exacerbation (principal)
CPT/HCPCS: 81025; 94640; 94664; 99284; J7512; J7620

== ENCOUNTER 2018-03-24 00:34 | Emergency (ER) | payer MEDICAID ==
[~2018-03-24] VITALS: Ht 172.7 cm; Wt 79.4 kg
[~2018-03-24 00:34] MED LIST changes: +ADULT WAL-100 MG/5 M ORAL
[2018-03-24 00:40] VITALS: BP 136/61
--- NOTE | 2018-03-24 01:03 | Emergency Room Report ---
History of Present Illness General Chief Complaint: Flu Like Symptoms Source: Patient Present Illness HPI Is a 33-year-old female with history of asthma. She presents with chief complaint shortness of breath. Onset for last 3 days. She saw 2 weeks ago and her doctor said that she was wheezing. She was prescribed albuterol and Qvar. Also given a prescription for azithromycin. Patient got worse and last 3 days. Increasing coughing productive of sputum. She took her back yesterday. No nausea no vomiting. Worse with exertion. Worse with lying flat. She normally mcknight incense but can't for last few days because of the wheezing. Allergies: Coded Allergies: No Known Allergies (Unverified , 10/24/14) Patient History Past Medical History: see triage record, old chart reviewed, asthma Past Surgical History: other Pertinent Family History: none Social History: Denies: smoking Last Menstrual Period: now Now: No Immunizations: other Reviewed Nursing Documentation: PMH: Agreed; PSxH: Agreed Nursing Documentation-PMH Past Medical History: No History, Except For Hx Cardiac Problems: No Hx Asthma: Yes Hx Cancer: No Hx Gastrointestinal Problems: No Hx Neurological Problems: No Review of Systems Eye: Denies: eye pain, blurred vision ENT: Denies: ear pain, nose congestion, throat swelling Respiratory: Reports: cough, shortness of breath, wheezing Cardiovascular: Denies: chest pain, palpitations Gastrointestinal: Denies: abdominal pain, diarrhea, nausea, vomiting Musculoskeletal: Denies: back pain, joint pain Skin: Denies: rash Neurological: Denies: headache, numbness Endocrine: Denies: increased thirst, increased urine Hematologic/Lymphatic: Denies: easy bruising All Other Systems: negative except mentioned in HPI Physical Exam Vital Signs Date Time Temp Pulse Resp B/P (MAP) Pulse Ox O2 Delivery O2 Flow Rate FiO2 03/24/18 00:37 97.9 77 16 136/61 95 Room Air 97.9 vitals normal Sp02 EP Interpretation: reviewed, normal General Appearance: well appearing, no apparent distress, alert Head: normocephalic, atraumatic Eyes: bilateral eye PERRL, bilateral eye EOMI ENT: hearing grossly normal, normal pharynx Neck: full range of motion, supple, no meningismus Respiratory: chest non-tender, accessory muscle use, wheezing Cardiovascular #1: regular rate, rhythm, no murmur Gastrointestinal: normal bowel sounds, non tender, no mass, no organomegaly, no bruit, non-distended Musculoskeletal: back normal, gait/station normal, normal range of motion Psychiatric: mood/affect normal Skin: warm/dry Medical Decision Making Diagnostic Impression: Primary Impression: Asthma exacerbation Qualified Codes: J45.21 - Mild intermittent asthma with (acute) exacerbation ER Course Is with asthma exacerbation. She felt better after breathing treatment and steroid. No evidence of ACS, PE, dissection or pneumonia to name a few. We'll discharge home. Chest X-Ray Diagnostic Results Chest X-Ray Diagnostic Results : Chest X-Ray Ordered: Yes # of Views/Limited/Complete: 1 View Indication: Shortness of Breath EP Interpretation: Yes Interpretation: no consolidation, no effusion, no pneumothorax, no acute cardiopulmonary disease Impression: No acute disease Electronically Signed by: Davey Mcmillan MD Last Vital Signs Date Time Temp Pulse Resp B/P (MAP) Pulse Ox O2 Delivery O2 Flow Rate FiO2 03/24/18 00:37 97.9 77 16 136/61 95 Room Air 97.9 Status: improved Disposition: HOME, SELF-CARE Condition: Stable Scripts Prednisone* (PREDNISONE*) 20 Mg Tablet 60 MG ORAL DAILY, #12 TAB Prov: DAVEY MCMILLAN M.D. 03/24/18 Additional Instructions: follow-up with your In 2-3 days if not better. Return if worse. DAVEY MCMILLAN M.D. Mar 24, 2018 01:03
[2018-03-24] MEDS ORDERED: Albuterol ud Inhalation HHN ONE (01:15)
[2018-03-24] MEDS ORDERED: Ipratropium 0.02% Inh Soln 2.5ml UD HHN ONE (01:15)
[2018-03-24] MEDS ORDERED: PREDNISONE20 MG ORAL (01:46)
[2018-03-24 01:51] VITALS: BP 128/70
[2018-03-24 01:52] VITALS: BP 128/70
--- NOTE | 2018-03-24 11:41 | Diagnostic Imaging Report ---
Indication: Dyspnea Comparison: 11/08/2017 A single view chest radiograph was obtained. Findings: Cardiomediastinal appearance is within normal limits for age. Pulmonary vascularity is appropriate. The diaphragmatic contour is smooth and costophrenic angles are sharp. No pleural effusions are identified. The bones are unremarkable. Impression: No acute findings
== END 2018-03-24 01:52 | disposition home or self-care (01) ==
LOC: EMR 00:55
DX: J45.901 Unspecified asthma with (acute) exacerbation (principal)
CPT/HCPCS: 71045; 94640; 94664; 99283; J7512

== ENCOUNTER 2018-09-08 00:28 | Emergency (ER) | payer MEDICAID, OTHER ==
[~2018-09-08] VITALS: Ht 172.7 cm; Wt 78.5 kg
[2018-09-08 00:30] VITALS: BP 112/54
[2018-09-08] MEDS ORDERED: Albuterol/Ipratropium 3ml neb HHN ONE (01:00)
[2018-09-08 01:10] VITALS: BP 124/67
[2018-09-08] MEDS ORDERED: ALBUTEROL SULF8.5 GM INH (01:17)
[2018-09-08] MEDS ORDERED: PREDNISONE20 MG ORAL (01:17)
[2018-09-08] MEDS ORDERED: ZITHROMAX250 MG ORAL (01:17)
--- NOTE | 2018-09-08 01:18 | Emergency Room Report ---
History of Present Illness General Chief Complaint: Upper Respiratory Illness Source: Patient Present Illness HPI Is a 33-year-old female with a history of asthma. She has been doing well. She presents with chief complaint of shortness of breath and chest pain. Onset for last couple days. She also has congestion and sore throat. Also with right ear pain. No fever or chills. Worse with lying flat. Better with sitting up. Better with her nebulizer treatment. Allergies: Coded Allergies: No Known Allergies (Unverified , 10/24/14) Patient History Past Medical History: see triage record, old chart reviewed, asthma Past Surgical History: none Pertinent Family History: none Social History: Denies: smoking Last Menstrual Period: 2 saturdays ago Now: No Immunizations: other Reviewed Nursing Documentation: PMH: Agreed; PSxH: Agreed Nursing Documentation-PMH Hx Cardiac Problems: No Hx Asthma: Yes Hx Cancer: No Hx Gastrointestinal Problems: No Hx Neurological Problems: No Review of Systems Eye: Denies: eye pain, blurred vision ENT: Reports: ear pain, nose congestion, throat pain; Denies: throat swelling Respiratory: Reports: cough, shortness of breath, wheezing Cardiovascular: Denies: chest pain, palpitations Gastrointestinal: Denies: abdominal pain, diarrhea, nausea, vomiting Musculoskeletal: Denies: back pain, joint pain Skin: Denies: rash Neurological: Denies: headache, numbness Endocrine: Denies: increased thirst, increased urine Hematologic/Lymphatic: Denies: easy bruising All Other Systems: negative except mentioned in HPI Physical Exam Vital Signs Date Time Temp Pulse Resp B/P (MAP) Pulse Ox O2 Delivery O2 Flow Rate FiO2 09/08/18 00:30 98.6 75 16 112/54 98 Room Air 09/08/18 01:07 21 vitals normal Sp02 EP Interpretation: reviewed, normal General Appearance: well appearing, no apparent distress, alert Head: normocephalic, atraumatic Eyes: bilateral eye PERRL, bilateral eye EOMI ENT: hearing grossly normal, normal pharynx, uvula midline - Elongated, other - Right TM is dull with retraction Neck: full range of motion, supple, no meningismus Respiratory: chest non-tender, decreased breath sounds, wheezing Cardiovascular #1: regular rate, rhythm, no murmur Gastrointestinal: normal bowel sounds, non tender, no mass, no organomegaly, no bruit, non-distended Musculoskeletal: back normal, gait/station normal, normal range of motion Psychiatric: mood/affect normal Skin: warm/dry Medical Decision Making Diagnostic Impression: Primary Impression: Asthma exacerbation Qualified Codes: J45.21 - Mild intermittent asthma with (acute) exacerbation Additional Impression: Otitis media Qualified Codes: H66.90 - Otitis media, unspecified, unspecified ear ER Course Patient with a viral illness complicated her asthma. She also has otitis media. No evidence of any sepsis, pneumonia, ACS, dissection to name a few. We 'll discharge home. Last Vital Signs Date Time Temp Pulse Resp B/P (MAP) Pulse Ox O2 Delivery O2 Flow Rate FiO2 09/08/18 01:07 78 19 98 Room Air 21 09/08/18 00:32 98.4 127/62 Status: improved Disposition: HOME, SELF-CARE Condition: Stable Scripts Azithromycin* (ZITHROMAX*) 250 Mg Tablet 250 MG ORAL DAILY, #6 TAB 0 Refills Take two tables once daily for 1 day, then one tablet once daily for 4 days. Prov: Davey Mcmillan MD 09/08/18 Prednisone* (PREDNISONE*) 20 Mg Tablet 40 MG ORAL DAILY, #8 TAB Prov: Davey Mcmillan MD 09/08/18 Albuterol Sulfate* (ALBUTEROL SULFATE MDI*) 8.5 Gm Hfa.aer.ad 2 PUFF INH Q4H PRN for cough/wheezing, #1 EA 0 Refills Prov: Davey Mcmillan MD 09/08/18 Additional Instructions: Follow-up with your doctor in 7 days. Return if worse. Davey Mcmillan MD Sep 08, 2018 01:18
[2018-09-08 01:30] VITALS: BP 124/67
== END 2018-09-08 01:43 | disposition home or self-care (01) ==
LOC: EMR 01:00
DX: J45.901 Unspecified asthma with (acute) exacerbation (principal); H66.91 Otitis media, unspecified, right ear
CPT/HCPCS: 94640; 94664; 99284; J7512; J7620

== ENCOUNTER 2018-11-13 14:28 | Emergency (ER) | payer OTHER ==
[~2018-11-13] VITALS: Ht 172.7 cm; Wt 81.6 kg
[~2018-11-13 14:28] MED LIST changes: +ZITHROMAX250 MG ORAL
[2018-11-13 14:31] VITALS: BP 115/61
--- NOTE | 2018-11-13 14:40 | NUR ---
ED Nurse Note: PT. AAOX4. AMBULATORY.CAME IN TO ER DUE TO ASTHMA ATTACK. AUDIBLE WHEEZING NOTED. PER PT. SHE RAN OUT OF HER ASTHMA MEDICATIONS
--- NOTE | 2018-11-13 14:43 | Emergency Room Report ---
History of Present Illness General Chief Complaint: Asthma Source: Patient Present Illness HPI Patient presents with worsened asthma for a week. She's been using her inhaler "way too often". She is ran out of her steroid inhaler. At times she does not need to use an inhaler but her asthma got worse a week ago. This is not her worst attack. She denies any fevers, chills, productive phlegm or chest pain. She also denies nausea vomiting diarrhea calf pain or edema. This is not her worst attack. Her asthma is worse at night, better with working out. Allergies: Coded Allergies: No Known Allergies (Unverified , 10/24/14) Patient History Past Medical History: see triage record Social History: Denies: smoking Social History Narrative giselle, has family in [place] Last Menstrual Period: 11/03/18 Reviewed Nursing Documentation: PMH: Agreed; PSxH: Agreed Nursing Documentation-PMH Past Medical History: No History, Except For Hx Cardiac Problems: No Hx Asthma: Yes Hx Cancer: No Hx Gastrointestinal Problems: No Hx Neurological Problems: No Review of Systems All Other Systems: negative except mentioned in HPI Physical Exam Vital Signs Date Time Temp Pulse Resp B/P (MAP) Pulse Ox O2 Delivery O2 Flow Rate FiO2 11/13/18 14:31 71 18 Room Air 11/13/18 14:31 98.2 115/61 95 Sp02 EP Interpretation: reviewed, normal General Appearance: well appearing, no apparent distress, GCS 15 Head: normocephalic Eyes: bilateral eye normal inspection ENT: moist mucus membranes Neck: supple Respiratory: no accessory muscle use, wheezing, expiration, inspiration Cardiovascular #1: regular rate, rhythm, no edema Cardiovascular #2: 2+ radial (R) Gastrointestinal: normal inspection, normal bowel sounds, non tender, no mass, non-distended Musculoskeletal: back normal, gait/station normal, normal range of motion, no calf tenderness Neurologic: alert, oriented x3 Psychiatric: mood/affect normal Skin: normal inspection, warm/dry Medical Decision Making Diagnostic Impression: Primary Impression: Asthma exacerbation Qualified Codes: J45.41 - Moderate persistent asthma with (acute) exacerbation ER Course Patient presents with exacerbation of asthma. Differential includes status asthmaticus, bronchitis, allergic of asthma amongst others. She declines blood work at this time and x-ray which most likely is not needed. She feels that she needs steroids and breathing treatments at this time. There is no evidence of pulmonary embolus or pneumothorax. Clear after treatments. Discussed treatment plan. Patient stable for outpatient observation and treatment. Rhythm Strip Diag. Results EP Interpretation: yes Rhythm: no PVC's, no ectopy, other - Heart rate 58 Last Vital Signs Date Time Temp Pulse Resp B/P (MAP) Pulse Ox O2 Delivery O2 Flow Rate FiO2 11/13/18 16:35 98.2 73 18 120/62 98 Room Air 21 Status: improved Disposition: HOME, SELF-CARE Condition: Improved Scripts Beclomethasone Dipropionate 40MCG Oral Inh (QVAR 40*) 7.3 Gm Aer.w.adap 2 PUFFS INH TWICE A DAY, #1 GM 1 Refill Prov: Juwan Nathan MD 11/13/18 Albuterol Sulfate* (ALBUTEROL SULFATE MDI*) 8.5 Gm Hfa.aer.ad 2 PUFF INH Q6H, #1 EA 2 Refills Prov: Juwan Nathan MD 11/13/18 Prednisone* (PREDNISONE*) 20 Mg Tablet 40 MG ORAL DAILY, #10 TAB Prov: Juwan Nathan MD 11/13/18 Juwan Nathan MD Nov 13, 2018 14:43
[2018-11-13] MEDS ORDERED: Ipratropium 0.02% Inh Soln 2.5ml UD HHN ONE (14:45)
--- NOTE | 2018-11-13 14:45 | NUR ---
ED Nurse Note: RT AT THE BEDSIDE
[2018-11-13] MEDS: Albuterol ud Inhalation HHN SCH ×2 (15:21→15:22)
[2018-11-13] MEDS ORDERED: PREDNISONE20 MG ORAL (16:21)
[2018-11-13] MEDS ORDERED: ALBUTEROL SULF8.5 GM INH (16:21)
[2018-11-13] MEDS ORDERED: QVAR7.3 GM INH (16:21)
[2018-11-13 16:35] VITALS: BP 115/61
--- NOTE | 2018-11-13 16:36 | NUR ---
ER DISCHARGE NOTE: Patient is cleared to be discharged per ERMD, pt is aox4, on room air, with stable vital signs. pt was given dc and prescription instructions, pt was able to verbalize understanding, pt id band removed without complications. pt is able to ambulate with steady gait. pt took all belongings.
== END 2018-11-13 16:35 | disposition home or self-care (01) ==
LOC: EMR 15:01
DX: J45.41 Moderate persistent asthma with (acute) exacerbation (principal)
CPT/HCPCS: 94644; 94664; 99284; J7512

== ENCOUNTER 2019-01-12 01:05 | Emergency (ER) | payer OTHER ==
[~2019-01-12] VITALS: Ht 172.7 cm; Wt 81.6 kg
--- NOTE | 2019-01-12 01:16 | NUR ---
ED Nurse Note: Left foot pain for ten days, states she rolled her foot at the gym.
--- NOTE | 2019-01-12 01:26 | NUR ---
ED Nurse Note: XRAY at BEDSIDE
--- NOTE | 2019-01-12 01:30 | NUR ---
ED Nurse Note: xray complete
[2019-01-12] MEDS ORDERED: IBUPROFEN600 MG ORAL (02:08)
[2019-01-12 02:10] VITALS: BP 117/77
--- NOTE | 2019-01-12 02:10 | NUR ---
ER DISCHARGE NOTE: Patient is cleared to be discharged per ERMD, pt is aox4, on room air, with stable vital signs. pt was given dc and prescription instructions, pt was able to verbalize understanding, pt id bandremoved. pt is able to ambulate with steady gait. pt took all belongings.
--- NOTE | 2019-01-12 03:23 | Emergency Room Report ---
History of Present Illness General Chief Complaint: Lower Extremity Injury Source: Patient Present Illness HPI 33-year-old female presents ED for evaluation complaining of left foot pain. States she rolled her foot at the gym about 10 days ago. States she's had persistent pain to the left foot since. Throbbing, 7 out of 10, nonradiating. Is able to bear weight but with pain. Denies any other injuries. No other aggravating relieving factors. Denies any other associated symptoms Allergies: Coded Allergies: No Known Allergies (Unverified , 10/24/14) Patient History Past Medical History: none Past Surgical History: none Pertinent Family History: none Social History: Denies: smoking, alcohol use, drug use Last Menstrual Period: 12/13/18 Now: No Immunizations: UTD Reviewed Nursing Documentation: PMH: Agreed; PSxH: Agreed Nursing Documentation-PMH Hx Cardiac Problems: No Hx Asthma: Yes Hx Cancer: No Hx Gastrointestinal Problems: No Hx Neurological Problems: No Review of Systems All Other Systems: negative except mentioned in HPI Physical Exam Vital Signs Date Time Temp Pulse Resp B/P (MAP) Pulse Ox O2 Delivery O2 Flow Rate FiO2 01/12/19 01:09 99.3 65 16 117/77 96 Room Air Sp02 EP Interpretation: reviewed, normal General Appearance: no apparent distress, alert, GCS 15, non-toxic Head: normocephalic Eyes: bilateral eye normal inspection, bilateral eye PERRL ENT: normal ENT inspection Neck: normal inspection Respiratory: normal inspection Cardiovascular #1: normal inspection Gastrointestinal: normal inspection Rectal: deferred Genitourinary: no CVA tenderness Musculoskeletal: tender - TTP/swelling base of L 5th toe. no crepitus or bruising Neurologic: alert, oriented x3, responsive, motor strength/tone normal, sensory intact, speech normal Psychiatric: normal inspection Skin: normal inspection Lymphatic: normal inspection Procedures Splinting Splinting : Consent: Verbal Pre-Made Type: cast shoe Pre-Proc Neuro Vasc Exam: normal Post-Proc Neuro Vasc Exam: normal Patient Tolerated: Well Complications: None Medical Decision Making Diagnostic Impression: Primary Impression: Foot contusion Qualified Codes: S90.32XA - Contusion of left foot, initial encounter ER Course Hospital Course 33-year-old F presents to ED complaining of R foot pain Differential diagnoses include: Fracture, dislocation, sprain, contusion Clinical course Patient placed on stretcher. After initial history and physical, I ordered Xrays of R foot X-ray shows no evidence of fracture or dislocation. Some soft tissue swelling at the base of the left fifth toe. Discussed findings with patient. Likely contusion versus soft tissue injury. recommend modified activity with cast shoe. cam walker. Safe for discharge close outpatient follow-up. We'll provide orthopedic referrals Diagnosis - foot contusion Stable and discharged to home with prescription for Motrin. apply ice, keep elevated. weight bear as tolerated. Followup with PMD/ortho. Return to ED if symptoms recur or worsen Other X-Ray Diagnostic Results Other X-Ray Diagnostic Results : X-Ray ordered: L foot # of Views/Limited Vs Complete: 3 View Indication: Pain EP Interpretation: Yes Interpretation: no dislocation, no fractures Impression: No acute disease Electronically Signed by: Electronically signed by Panda Goyal MD Last Vital Signs Date Time Temp Pulse Resp B/P (MAP) Pulse Ox O2 Delivery O2 Flow Rate FiO2 01/12/19 02:10 99.3 88 16 117/77 96 Room Air Status: improved Disposition: HOME, SELF-CARE Condition: Stable Scripts Ibuprofen* (MOTRIN*) 600 Mg Tablet 600 MG ORAL Q8H PRN for For Pain, #30 TAB 0 Refills Prov: Panda Goyal MD 01/12/19 [facility] Open 24 hour /7 days a week by Appointment Only [address] [facility] [address] [facility] [address] Patient Instructions: Foot Contusion Panda Goyal MD Jan 12, 2019 03:23
--- NOTE | 2019-01-12 14:56 | Diagnostic Imaging Report ---
Indication: Pain Technique: XRAY Foot Complete L Comparison: None Findings: Bone mineralization within normal limits. No acute fracture or dislocation is identified. Alignment joint spaces are maintained. There is no radiopaque foreign body. Impression: No acute fracture or dislocation.
== END 2019-01-12 02:10 | disposition home or self-care (01) ==
LOC: EMR 01:22
DX: S90.32XA Contusion of left foot, initial encounter (principal); X50.1XXA Overexertion from prolonged static or awkward postures, initial encounter; Y92.39 Other specified sports and athletic area as the place of occurrence of the external cause; J45.909 Unspecified asthma, uncomplicated
CPT/HCPCS: 29515; 99283

== ENCOUNTER 2019-02-09 14:26 | Emergency (ER) | payer OTHER ==
[~2019-02-09] VITALS: Ht 172.7 cm; Wt 81.6 kg
[2019-02-09 14:30] VITALS: BP 122/80
--- NOTE | 2019-02-09 14:30 | NUR ---
ED Nurse Note: PT WALKED IN TO ER TODAY FROM HOME. AOX4. PT C/O SOB AND ASTHMA EXACERBATION X 4 DAYS AGO. PT STATES SHE HAS BEEN USING HER INHALER AT HOME WITH NO RELIEF. WHEEZING AUSCULTATED IN ALL LOBES BUT NO SIGNS OF RESPIRATORY DISTRESS, RETRACTIONS, OR ACCESSORY MUSCLE USE NOTED. PT ABLE TO SPEAK IN FULL SENTENCES. RR18, O2 SAT @ 98% ON RA.
--- NOTE | 2019-02-09 14:35 | NUR ---
ED Nurse Note: RT CALLED FOR BREATHING TX.
--- NOTE | 2019-02-09 14:40 | NUR ---
ED Nurse Note: RT AT BEDSIDE FOR BREATHING TX.
[2019-02-09] MEDS ORDERED: Albuterol ud Inhalation ONE (14:41)
[2019-02-09] MEDS ORDERED: Albuterol ud Inhalation HHN ONE (14:45)
[2019-02-09] MEDS ORDERED: Ipratropium 0.02% Inh Soln 2.5ml UD HHN ONE (14:45)
--- NOTE | 2019-02-09 15:01 | Emergency Room Report ---
History of Present Illness General Chief Complaint: Asthma Source: Patient, Medical Record Present Illness HPI Patient presents with complaint of asthma exacerbation Denies any chest pain denies any fevers denies any vomiting Denies any recent travel Reports that since Wednesday after working out she felt some increased shortness of breath She's had to use her inhaler for the past several days Denies any pleurisy Is not quite sure the reason for the exacerbation Denies any fevers denies any posterior neck pain or photophobia Denies any recent hospitalizations Allergies: Coded Allergies: No Known Allergies (Unverified , 10/24/14) Patient History Pertinent Family History: none Last Menstrual Period: 01/11/19 Reviewed Nursing Documentation: PMH: Agreed; PSxH: Agreed Nursing Documentation-PMH Past Medical History: No History, Except For Hx Cardiac Problems: No Hx Asthma: Yes Hx Cancer: No Hx Gastrointestinal Problems: No Hx Neurological Problems: No Review of Systems All Other Systems: negative except mentioned in HPI Physical Exam Vital Signs Date Time Temp Pulse Resp B/P (MAP) Pulse Ox O2 Delivery O2 Flow Rate FiO2 02/09/19 14:28 97.9 105 19 94 Room Air 02/09/19 14:30 122/80 02/09/19 14:43 21 Sp02 EP Interpretation: reviewed, normal General Appearance: well appearing, no apparent distress Head: normocephalic, atraumatic Eyes: bilateral eye PERRL, bilateral eye EOMI ENT: hearing grossly normal, normal pharynx, TMs + canals normal, uvula midline Neck: full range of motion, supple, no meningismus, no bony tend Respiratory: no respiratory distress, no retraction, no accessory muscle use, wheezing - Bilaterally Cardiovascular #1: normal peripheral pulses, regular rate, rhythm, no edema, no gallop Gastrointestinal: normal bowel sounds, non tender, soft, no organomegaly, non- distended, no guarding, no hernia, no pulsatile mass, no rebound Musculoskeletal: normal inspection Neurologic: oriented x3, responsive, motor strength/tone normal, sensory intact Psychiatric: mood/affect normal Skin: normal color, no rash, warm/dry, palpation normal Lymphatic: normal inspection, no adenopathy Medical Decision Making Diagnostic Impression: Primary Impression: Asthma attack ER Course Given the patient's history and presentation multiple differentials and consideration, including but not limited to cardiac cardiopulmonary, vascular, infectious pathology entertained Patient receiving breathing treatment at this time oral steroids On repeat evaluation patient reports feeling significantly improved lung sounds are also improved patient was provided prescription for her albuterol and also tapering steroids and will have close outpatient follow-up Rhythm Strip Diag. Results EP Interpretation: yes Rate: 77 Rhythm: NSR, no PVC's, no ectopy Last Vital Signs Date Time Temp Pulse Resp B/P (MAP) Pulse Ox O2 Delivery O2 Flow Rate FiO2 02/09/19 14:43 87 16 98 Room Air 21 02/09/19 14:30 98.1 122/80 Status: improved Disposition: HOME, SELF-CARE Condition: Improved Scripts Methylprednisolone (Methylprednisolone*) 4MG Dspk 4 MG ORAL DIRECTED for 6 Days, #21 EA 0 Refills Day 1: Two tablets before breakfast, one after lunch, one after dinner, and two at bedtime. If started late in the day, take all six tablets at once or divide into two or three doses, unless otherwise directed by prescriber. Day 2: One tablet before breakfast, one after lunch, one after dinner, and two at bedtime Day 3: One tablet before breakfast, one after lunch, one after dinner, and one at bedtime Day 4: One tablet before breakfast, one after lunch, and one at bedtime Day 5: One tablet before breakfast and one at bedtime Day 6: One tablet before breakfast Prov: Layton Presley DO 02/09/19 Albuterol Sulfate* (ALBUTEROL SULFATE MDI*) 8.5 Gm Hfa.aer.ad 2 PUFF INH Q4H PRN for cough/wheezing, #1 EA 0 Refills Prov: Layton Presley DO 02/09/19 Additional Instructions: Patient is provided with the discharge instructions notified to follow up with primary doctor in the next 2-3 days otherwise return to the er with any worsening symptoms. Please note that this report is being documented using [employer] technology. This can lead to erroneous entry secondary to incorrect interpretation by the dictating instrument. Layton Presley DO February 09, 2019 15:01
[2019-02-09] MEDS ORDERED: MEDROL DOSEPAK4 MG ORAL (15:36)
[2019-02-09] MEDS ORDERED: ALBUTEROL SULF8.5 GM INH (15:36)
[2019-02-09 15:47] VITALS: BP 118/76
--- NOTE | 2019-02-09 15:48 | NUR ---
ED Nurse Note: PT SITTING PEACEFULLY IN BED IN NAD. AOX4. PRESCRIPTIONS AND DISCHARGE PAPERWORK EXPLAINED TO PT. PT VERBALIZES UNDERSTANDING AND ALL QUESTIONS ANSWERED. PRESCRIPTIONS AND DISCHARGE PAPERWORK GIVEN TO PT AND ID WRISTBAND REMOVED. PT WALKED OUT OF ER WITH STEADY GAIT AND ALL BELONGINGS.
== END 2019-02-09 15:53 | disposition home or self-care (01) ==
LOC: EMR 15:00
DX: J45.901 Unspecified asthma with (acute) exacerbation (principal)
CPT/HCPCS: 94640; 94664; 99284; J7512

== ENCOUNTER → 2019-03-20 | Emergency (ER) | payer OTHER ==
[~2019-03-20] VITALS: Ht 172.7 cm; Wt 81.6 kg
[~2019-03-20] MED LIST changes: +Albuterol ud Inhalation HHN ONE; +BREO ELLIPTA 21 EACH IH; +Ipratropium 0.02% Inh Soln 2.5ml UD HHN ONE; +MEDROL DOSEPAK4 MG ORAL
[2019-03-20 21:10] VITALS: BP 113/77
--- NOTE | 2019-03-20 21:26 | Emergency Room Report ---
History of Present Illness General Chief Complaint: Asthma Source: Patient Present Illness [facility] This is a 34-year-old female with a history of asthma. She goes through 1 albuterol inhaler a month. She presents with chief complaint of wheezing shortness of breath. Onset yesterday. She is out of her inhaler. This occurred after she went to a [employer] lounge similar symptom in the past. No fever chills but no nausea no vomiting. Worse with exertion. Better with rest. She is currently not taking steroid inhaler. Allergies: Coded Allergies: No Known Allergies (Unverified , 10/24/14) Patient History Past Medical History: see triage record, old chart reviewed, asthma Past Surgical History: none Pertinent Family History: none Social History: Reports: smoking, drug use - Last Menstrual Period: 03/13/19 Now: No : 1 Para: 0 Immunizations: other Reviewed Nursing Documentation: PMH: Agreed; PSxH: Agreed Nursing Documentation-PMH Past Medical History: No History, Except For Hx Cardiac Problems: No Hx Asthma: Yes Hx Cancer: No Hx Gastrointestinal Problems: No Hx Neurological Problems: No Review of Systems Eye: Denies: eye pain, blurred vision ENT: Denies: ear pain, nose congestion, throat swelling Respiratory: Reports: cough, shortness of breath, wheezing Cardiovascular: Denies: chest pain, palpitations Gastrointestinal: Denies: abdominal pain, diarrhea, nausea, vomiting Musculoskeletal: Denies: back pain, joint pain Skin: Denies: rash Neurological: Denies: headache, numbness Endocrine: Denies: increased thirst, increased urine Hematologic/Lymphatic: Denies: easy bruising All Other Systems: negative except mentioned in HPI Physical Exam Vital Signs Date Time Temp Pulse Resp B/P (MAP) Pulse Ox O2 Delivery O2 Flow Rate FiO2 03/20/19 21:09 98.2 72 19 113/77 (89) 97 Room Air Vitals normal Sp02 EP Interpretation: reviewed, normal General Appearance: well appearing, no apparent distress, alert Head: normocephalic, atraumatic Eyes: bilateral eye PERRL, bilateral eye EOMI ENT: hearing grossly normal, normal pharynx Neck: full range of motion, supple, no meningismus Respiratory: chest non-tender, respiratory distress, decreased breath sounds, accessory muscle use, wheezing Cardiovascular #1: regular rate, rhythm, no murmur Gastrointestinal: normal bowel sounds, non tender, no mass, no organomegaly, no bruit, non-distended Musculoskeletal: back normal, gait/station normal, normal range of motion Psychiatric: mood/affect normal Skin: warm/dry Medical Decision Making Diagnostic Impression: Primary Impression: Asthma exacerbation Qualified Codes: J45.41 - Moderate persistent asthma with (acute) exacerbation ER Course Patient presents with asthma exacerbation. Cleared up with albuterol. Will put on steroid. She will need a steroid inhaler also. No evidence of ACS, PE, dissection to name a few. Last Vital Signs Date Time Temp Pulse Resp B/P (MAP) Pulse Ox O2 Delivery O2 Flow Rate FiO2 03/20/19 21:09 98.2 72 19 113/77 (89) 97 Room Air Status: improved Disposition: HOME, SELF-CARE Condition: Stable Scripts Fluticasone/Vilanterol (Breo Ellipta 200-25 Mcg INH) 1 Each Blst.w.dev 1 EACH IH BID, #1 UNIT Prov: Davey Mcmillan MD 03/20/19 Albuterol Sulfate* (ALBUTEROL SULFATE MDI*) 8.5 Gm Hfa.aer.ad 2 PUFF INH Q4H PRN for cough/wheezing, #1 EA 3 Refills Prov: Davey Mcmillan MD 03/20/19 Patient Instructions: Asthma, Adult Additional Instructions: Stop smoking. Follow-up with your doctor in 7 days. Return if worse. Davey Mcmillan MD Mar 20, 2019 21:26
--- NOTE | 2019-03-20 22:03 | NUR ---
ED Nurse Note: Pt ambulated to ED from home c/o asthma and audible wheezing heard. Pt is A&Ox4, spo2 is 97% on room air. Pt is in need of Rx refill
[2019-03-20 22:06] VITALS: BP 113/77
--- NOTE | 2019-03-20 22:06 | NUR ---
ER DISCHARGE NOTE: Patient is cleared to be discharged per ERMD, pt is aox4, on room air, with stable vital signs. pt was given dc and prescription instructions, pt was able to verbalize understanding, pt id band removed. pt is able to ambulate with steady gait. pt took all belongings.
== END | disposition home or self-care (01) ==
LOC: EMR 21:48
DX: J45.41 Moderate persistent asthma with (acute) exacerbation (principal); F17.200 Nicotine dependence, unspecified, uncomplicated
CPT/HCPCS: 94640; 94664; 99284; J7512

== ENCOUNTER 2019-05-17 23:01 | Emergency (ER) | payer OTHER ==
[~2019-05-17] VITALS: Ht 172.7 cm; Wt 81.6 kg
[~2019-05-17 23:01] MED LIST changes: -Albuterol ud Inhalation HHN ONE; -Ipratropium 0.02% Inh Soln 2.5ml UD HHN ONE
[2019-05-17 23:10] VITALS: BP 117/71
--- NOTE | 2019-05-17 23:10 | NUR ---
ED Nurse Note: Patient walked into ED c/o medication refill, states that she ran out of inhaler today. patient is able to speak in full sentences and is not complaining of Shortness of breath at this time
[2019-05-18] MEDS ORDERED: ADVAIR 250-501 EACH INH (00:50)
[2019-05-18] MEDS ORDERED: ALBUTEROL SULF8.5 GM INH (00:50)
[2019-05-18] MEDS ORDERED: MEDROL DOSEPAK4 MG ORAL (00:50)
[2019-05-18 00:54] VITALS: BP 121/73
--- NOTE | 2019-05-18 03:56 | Emergency Room Report ---
History of Present Illness General Chief Complaint: Medication Refill Source: Patient Present Illness HPI Patient presents with reports that she has had difficulty getting a prescription of her Advair Reports that she has a history of asthma She felt that she had a mild exacerbation but denies wanting a breathing treatment Denies any back or flank pain denies any recent travel denies any pleurisy Allergies: Coded Allergies: No Known Allergies (Unverified , 10/24/14) Patient History Past Medical History: see triage record Last Menstrual Period: 05/11/19 Now: No Reviewed Nursing Documentation: PMH: Agreed; PSxH: Agreed Nursing Documentation-PMH Past Medical History: No History, Except For Hx Cardiac Problems: No Hx Asthma: Yes Hx Cancer: No Hx Gastrointestinal Problems: No Hx Neurological Problems: No Review of Systems All Other Systems: negative except mentioned in HPI Physical Exam Vital Signs Date Time Temp Pulse Resp B/P (MAP) Pulse Ox O2 Delivery O2 Flow Rate FiO2 05/17/19 23:07 98.8 80 18 117/71 (86) 96 Room Air Sp02 EP Interpretation: reviewed, normal General Appearance: well appearing, no apparent distress Head: normocephalic, atraumatic Eyes: bilateral eye PERRL, bilateral eye EOMI ENT: hearing grossly normal, normal pharynx, TMs + canals normal, uvula midline Neck: full range of motion, supple, no meningismus, no bony tend Respiratory: no rhonchi, no respiratory distress, no retraction, no accessory muscle use, crackles - Fine crackles bilaterally Cardiovascular #1: normal peripheral pulses, regular rate, rhythm, no edema, no gallop, no JVD, no murmur Gastrointestinal: normal bowel sounds, non tender, soft, no mass, no organomegaly, non-distended, no guarding, no hernia, no pulsatile mass, no rebound Genitourinary: no CVA tenderness Musculoskeletal: normal inspection Neurologic: oriented x3, responsive, 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, motor strength/ tone normal, sensory intact Psychiatric: mood/affect normal Lymphatic: normal inspection, no adenopathy Medical Decision Making Diagnostic Impression: Primary Impression: Asthma exacerbation attacks ER Course Given the patient's history and presentation she was provided with oral steroids here Reports that she feels significantly improved prescription is written and patient will have initial conservative outpatient trial Last Vital Signs Date Time Temp Pulse Resp B/P (MAP) Pulse Ox O2 Delivery O2 Flow Rate FiO2 05/18/19 00:54 98.5 87 16 121/73 100 Room Air Status: improved Disposition: HOME, SELF-CARE Condition: Improved Scripts Fluticasone/Salmeterol (Advair 250-50 Diskus) 1 Each Blst.w.dev 1 PUFF INH EVERY 12 HOURS, #2 EA Prov: GerardmaurojgLayton BANUELOS 05/18/19 Albuterol Sulfate* (ALBUTEROL SULFATE MDI*) 8.5 Gm Hfa.aer.ad 2 PUFF INH Q6H, #1 EA 0 Refills Prov: Layton Presley DO 05/18/19 Methylprednisolone (Methylprednisolone*) 4MG Dspk 4 MG ORAL DIRECTED for 6 Days, #21 EA 0 Refills Day 1: Two tablets before breakfast, one after lunch, one after dinner, and two at bedtime. If started late in the day, take all six tablets at once or divide into two or three doses, unless otherwise directed by prescriber. Day 2: One tablet before breakfast, one after lunch, one after dinner, and two at bedtime Day 3: One tablet before breakfast, one after lunch, one after dinner, and one at bedtime Day 4: One tablet before breakfast, one after lunch, and one at bedtime Day 5: One tablet before breakfast and one at bedtime Day 6: One tablet before breakfast Prov: Layton Presley DO 05/18/19 Referrals: NON PHYSICIAN (PCP) [facility] Jaylan Henriquez [facility] Patient Instructions: Medicine Refill at the Emergency Department, Asthma, Adult, [id number] Additional Instructions: Patient is provided with the discharge instructions notified to follow up with primary doctor in the next 2-3 days otherwise return to the er with any worsening symptoms. Please note that this report is being documented using [employer] technology. This can lead to erroneous entry secondary to incorrect interpretation by the dictating instrument. Layton Presley DO May 18, 2019 03:56
== END 2019-05-18 01:15 | disposition home or self-care (01) ==
LOC: EMR 05-18 01:14
DX: J45.901 Unspecified asthma with (acute) exacerbation (principal); Z79.51 Long term (current) use of inhaled steroids
CPT/HCPCS: 99282; J7512

== ENCOUNTER 2019-07-31 10:49 | Emergency (ER) | payer OTHER ==
[~2019-07-31] VITALS: Ht 167.6 cm; Wt 77.1 kg
[2019-07-31 11:16] VITALS: BP 140/90
--- NOTE | 2019-07-31 11:20 | NUR ---
ED Nurse Note: Patient walked into ED from home c/o wheezing for 3 days, getting worse. patient reports hx of asthma. patient is alert awake x4 ambulatory steady gait, breathing unlabored and even, speaking in full sentences.
[2019-07-31] MEDS ORDERED: Solu-MEDROL 125mg Inj IM ONE (11:30)
[2019-07-31] MEDS: Albuterol ud Inhalation HHN SCH ×3 (11:35→11:42)
[2019-07-31] MEDS: Ipratropium 0.02% Inh Soln 2.5ml UD HHN SCH ×3 (11:35→11:42)
[2019-07-31] MEDS ORDERED: HYDROcodone/Acetamin 5/325 tab ORAL ONE (12:00)
--- NOTE | 2019-07-31 12:32 | Diagnostic Imaging Report ---
Indication: Cough Comparison: 03/24/2018 A single view chest radiograph was obtained. Findings: Cardiomediastinal appearance is within normal limits for age. The lungs are clear. Pulmonary vascularity is appropriate. The diaphragmatic contour is smooth and costophrenic angles are sharp. No pleural effusions are identified. The bones are unremarkable. Impression: No acute findings
[2019-07-31] MEDS ORDERED: PREDNISONE20 MG ORAL (12:37)
[2019-07-31] MEDS ORDERED: ALBUTEROL SULF8.5 GM INH (12:37)
[2019-07-31] MEDS ORDERED: FLOVENT2 PUFF2 INH (12:37)
[2019-07-31] MEDS ORDERED: ALBUTEROL2.5 MG/3 M INH (12:37)
[2019-07-31 13:01] VITALS: BP 140/90
--- NOTE | 2019-07-31 13:01 | NUR ---
ER DISCHARGE NOTE: Patient is cleared to be discharged per ERMD DR MEDINA, pt is aox4, on room air, with stable vital signs. pt was given dc and prescription instructions, pt was able to verbalize understanding, pt id band removed without complications. pt is able to ambulate with steady gait. pt took all belongings.
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
== END 2019-07-31 13:01 | disposition home or self-care (01) ==
LOC: EMR 11:38
DX: R06.03 Acute respiratory distress (principal); J45.909 Unspecified asthma, uncomplicated
CPT/HCPCS: 71045; 94640; 94664; 96372; J2930; Z7502; 99284